=== PATIENT | female | born 1995 | race Caucasian/White ===

== ENCOUNTER 2021-06-25 14:43 | Emergency (ER) | payer OTHER ==
[~2021-06-25] VITALS: Ht 157.5 cm; Wt 47.2 kg
[2021-06-25 15:52] LABS: BASOPHIL 0.2 % (0-2); EOSINOPHIL 0.6 % (0-5); HCT 38.6 % (37.0-47.0); HGB 12.7 g/dl (12.5-16.0); MCH 30.2 pg (25.0-31.0); MCHC 32.9 g/dL (32.0-36.0); MCV 91.9 fL (78.0-100.0); MONOCYTE 5.1 % (0-12); MPV 11.5 fL (6.0-9.5); NEUTROPHIL 75.8 % (41-80); NRBC 0; PLT 282 K/uL (150-400); RDW 13.1 % (11.5-14.0); WBC 13.2 K/uL (4.0-10.5)
[2021-06-25 16:11] LABS: BILIRUBIN NEGATIVE (NEGATIVE); BLOOD NEGATIVE Ery/uL (NEGATIVE); CLARITY CLEAR (CLEAR); COLOR YELLOW (YELLOW); GLUCOSE (U) NORMAL (NORMAL); LEUKOCYTES NEGATIVE Leu/uL (NEGATIVE); NITRITE NEGATIVE (NEGATIVE); PROTEIN TRACE (LOW) mg/dL (NEGATIVE); SPECIFIC GRAVITY >=1.030 (1.001-1.030); UROBILINOGEN 0.2 mg/dL (0.2-1.0)
[2021-06-25 16:23] LABS: ALBUMIN 4.1 g/dL (3.4-5.0); BILIRUBIN - TOTAL 0.4 mg/dL (0.2-1.0); BUN/CREAT RATIO (CALC) 10.9 RATIO; CREATININE 0.55 mg/dL (0.51-0.95); GLOBULIN (CALCULATION) 3.9 g/dL; POTASSIUM 3.1 mmol/L (3.5-5.1)
[2021-06-25] MEDS ORDERED: METRONIDAZOLE500 MG PO (18:31)
[2021-06-25] MEDS ORDERED: CIPRO500 MG PO (18:31)
[2021-06-25] MEDS ORDERED: ONDANSETRON HCL4 MG PO (18:31)
== END 2021-06-25 19:16 | disposition home or self-care (01) ==
LOC: FER 14:43
PROVIDERS: Nurse Practitioner Family
DX: K52.9 Noninfective gastroenteritis and colitis, unspecified (principal); J45.909 Unspecified asthma, uncomplicated
CPT/HCPCS: 36415; 80053; 81003; 85025; J7030; Q9967